=== PATIENT | male | born 1965 | race Caucasian/White ===

== ENCOUNTER 2018-04-21 14:15 | Emergency (ER) | payer OTHER, SELFPAY ==
[2018-04-21 14:17] VITALS: BP 121/78; PULSE 96; RESP 16; TEMP 35.6; BMI 50.5
--- NOTE | 2018-04-21 15:09 | RAD_ITS ---
STUDY: X-RAY - RIGHT SHOULDER REASON FOR EXAM: Male, 53 years old. Pain with limited range of motion after trauma. TECHNIQUE: 2 view(s) of the shoulder. COMPARISON: None. FINDINGS: Grossly normal glenohumeral alignment. There is degenerative arthrosis of the acromioclavicular joint without inferior osseous spur formation. Normal acromion. There is a comminuted fracture of the humeral head, the posterolateral fragments showing slight distraction. The soft tissue structures are grossly unremarkable, although some swelling near the level of the humeral neck could be present.. Normal visualized pulmonary apex. RAD/Shoulder min 2 Views IMPRESSION: Comminuted fracture of the right humeral head. Electronically Signed: Jesse Ordaz MD at 15:39 EDT , Service support ,
[2018-04-21] MEDS: Naproxen 500 MG Tablet PO (15:15)
--- NOTE | 2018-04-21 15:48 | ED.VISSUMM ---
- ER Visit Summary Date of Service: 04/21/18 Chief Complaint: Right shoulder pain History of Present Illness: The patient is a 53 M who presents with right shoulder pain. He states he was at work when he fell and landed on his right shoulder. This pain is worse with movement. He took no medications for it. He denies any previous injuries or surgeries to this arm. Physical Examination: Vital signs reviewed. Right shoulder reveals tenderness along the anterior proximal humeral area. His distal clavicle pain as well. He has painful range of motion. 2+ pulses distally. Test Results: Right shoulder x-ray reveals a proximal humerus fracture Emergency Department Course and Treatment: Patient was initially given naproxen for pain control. He will be placed in a sling. He states he does not want to do Worker's Compensation. I will give him a short course of Percocet for pain. He will be placed in a sling for comfort. He will be given orthopedic follow-up Treatment Plan: [] Disposition: Discharge Impression: Right proximal humerus fracture This note was generated with [employer] dictation software. It may contain incorrect words, spelling, and punctuation that were not noted in review of the chart prior to signing ED Disposition - Plan for ED Patient: Chief Complaint: Upper Extremity Injury Referrals: Esa Montalvo MD [Primary Care Provider] -
--- NOTE | 2018-04-21 15:49 | ED.DEP ---
ED Disposition - Plan for ED Patient: Disposition: Home or Assisted Living Chief Complaint: Upper Extremity Injury Instructions: ED Fx Shoulder Prescriptions: Oxycodone HCl/Acetaminophen [Percocet 5/325] 1 tab PO Q6H PRN PRN 3 Days #12 tab PRN Reason: Pain Referrals: Esa Montalvo MD [Primary Care Provider] - Saulo Steward MD [STAFF PHYSICIAN] -
[2018-04-21 16:20] VITALS: BP 122/74; PULSE 78; RESP 16; O2SAT 98
== END 2018-04-21 16:22 | disposition home or self-care (01) ==
PROVIDERS: Emergency Provider Emergency Medicine; Family Provider Family Medicine; PCP Family Medicine
DX: S42.201A Unspecified fracture of upper end of right humerus, initial encounter for closed fracture (principal); W19.XXXA Unspecified fall, initial encounter; Y93.9 Activity, unspecified; Y92.9 Unspecified place or not applicable; I10 Essential (primary) hypertension; Z79.82 Long term (current) use of aspirin; Z79.899 Other long term (current) drug therapy
CPT/HCPCS: 73030; 99283

== ENCOUNTER 2018-04-25 12:27 | Day surgery (SDC) | payer OTHER, SELFPAY ==
--- NOTE | 2018-04-24 13:21 | EKG12_ITS ---
Test Reason : PRE OP Blood Pressure : / mmHG Vent. Rate : 079 BPM Atrial Rate : 079 BPM P-R Int : 158 ms QRS Dur : 084 ms QT Int : 364 ms P-R-T Axes : 031 -27 -08 degrees QTc Int : 417 ms Normal sinus rhythm Cannot rule out Anterior infarct , age undetermined Abnormal ECG When compared with ECG of 20-MAR-2012 15:55, Minimal criteria for Anterior infarct are now Present Confirmed by LB MUÑOZ ([id number]), scientific publications editor KAIT RODRIGUEZ ([id number]) on 05/08/2018 7:02:32 PM Referred By: Severino Mauro Confirmed By:LB MUÑOZ
[2018-04-24 13:22] LABS: Hematocrit 40.7 % (40-54); Hemoglobin 13.5 g/dl (13.0-16.5); Mean Corp Hgb Conc 33.2 g/gl (32-36); Mean Corpuscular Volume 87.5 fL (80-94); Mean Platelet Vol. 9.6 fl (6.2-12.0); Platelet Count 231 K/mm3 (150-450); RBC Distribution Width CV 14.3 % (11.6-14.6); RBC Distribution Width SD 45.4 fl (35.1-43.9); Red Blood Count 4.65 M/mm3 (4.6-6.2); White Blood Count 8.3 K/mm3 (4.4-11.0)
[2018-04-24 13:24] LABS: Scan Indicated on CBC? Y/N NO
[2018-04-24 13:45] LABS: Anion Gap 7 (5-15); BUN 16 mg/dL (7-18); BUN/Creat Ratio 16.4 RATIO (10-20); Calcium,Total 8.7 mg/dL (8.5-10.1); Chloride 105 mmol/L (98-107); Creatinine, Serum 0.98 mg/dL (0.70-1.30); EST Glomerular Filtration Rate 85 mL/min (>60); Est Glom Filt Rate - Afr Amer 103 mL/min (>60); Glucose 95 mg/dL (74-106); Potassium 4.3 mmol/L (3.5-5.1); Sodium Level 141 mmol/L (136-145)
[2018-04-25] VITALS (11 sets, daily range): BP systolic 99–120; BP diastolic 60–74; PULSE 68–90; RESP 16–20; TEMP 36.1–36.6; O2SAT 92–100; BMI 49.8
--- NOTE | 2018-04-25 14:20 | RAD_ITS ---
STUDY: X-RAY - RIGHT SHOULDER REASON FOR EXAM: Male, 53 years old. ORIF. TECHNIQUE: 2 frontal fluoroscopic spot view(s) of the shoulder. COMPARISON: None. FINDINGS: Limited visualization of the glenohumeral articulation. Normal acromioclavicular alignment. Normal visualized acromion. Post ORIF, fracture of the humeral head and neck is fixed in anatomic alignment by a lateral metal sideplate and numerous screws. The soft tissue structures are unremarkable. Normal visualized pulmonary apex. RAD/Shoulder min 2 Views IMPRESSION: Humeral fracture fragments in anatomic alignment status post ORIF with lateral metal sideplate and screws. Electronically Signed: Jesse Ordaz MD at 17:30 EDT , Service support ,
[2018-04-25] MEDS: Ketorolac 30 MG/ML Syringe IV (16:51)
== END 2018-04-25 18:52 | disposition home or self-care (01) ==
LOC: SDC 12:28 → AC 12:29
PROVIDERS: Family Provider Family Medicine; PCP Family Medicine; Visit Provider Orthopaedic Surgery
PROC: (CPT 23615; principal; 2018-04-25 14:15)
DX: S42.291A Other displaced fracture of upper end of right humerus, initial encounter for closed fracture (principal); I10 Essential (primary) hypertension; E66.01 Morbid (severe) obesity due to excess calories; Z68.42 Body mass index [BMI] 45.0-49.9, adult; Z79.891 Long term (current) use of opiate analgesic; Z79.899 Other long term (current) drug therapy; Z79.82 Long term (current) use of aspirin; W18.39XA Other fall on same level, initial encounter; Y93.89 Activity, other specified; Y92.219 Unspecified school as the place of occurrence of the external cause; Y99.0 Civilian activity done for income or pay
CPT/HCPCS: 23615; 36415; 73030; 76000; 80048; 85027; 93005; C1713; J7120

== ENCOUNTER → 2020-02-04 09:40 | Outpatient (CLI) | payer OTHER, SELFPAY ==
[2019-06-25 11:43] VITALS: BMI 49.8
[2020-02-04 13:19] LABS: Hemoglobin A1c 5.3 % (4.2-6.3)
== END ==
PROVIDERS: PCP Family Medicine; Referring Provider Family Medicine; Visit Provider Family Medicine
DX: R73.9 Hyperglycemia, unspecified (principal)
CPT/HCPCS: 36415; 83036

== ENCOUNTER 2024-01-12 09:20 | Emergency (ER) | payer OTHER, SELFPAY ==
[2024-01-12 09:21] VITALS: BP 140/90; PULSE 73; RESP 18; TEMP 35.8; O2SAT 96; BMI 45.9
[2024-01-12 09:35] LABS: Color, Urine Yellow (Yellow); Glucose, Dipstick Normal (Normal); Ketone-Dipstick Negative (Negative); Leukocyte Esterase-Dipstick 25 /ul (Negative); Nitrite-Dipstick Negative (Negative); Occult Blood-Urine 250 /ul (Negative); Protein-Dipstick 30 mg/dl (Negative); Urine Bilirubin Dipstick Negative (Negative); Urine Clarity Clear (Clear); Urine Urobilinogen Normal (Normal)
[2024-01-12 09:37] LABS: Mucous, Urine 0 SEEN /hpf (<or=2+); Squamous Epithelial Cells - UA 0 SEEN /hpf (0-5)
--- NOTE | 2024-01-12 09:40 | EX.ED.GUMALE ---
HPI History of Present Illness Chief Complaint: Flank Pain Narrative Narrative: 58-year-old male presenting with left flank pain. Onset about 6 AM this morning. He states he has a history of kidney stone on the right about 12 years ago. He states he saw Dr. Diaz and needed lithotripsy. Patient states has not had a kidney stone since then. He denies fevers at home. He denies nausea. Patient denies abdominal pain. States his pain is relatively under control at this point. [facility] Medical History (Updated 01/12/24 @ 11:[address] Polo Cerna DO) Back pain Hx of carpal tunnel syndrome Hx of renal calculi Hypertension Home Medications aspirin 81 mg tablet,delayed release (Adult Low Dose Aspirin) 81 mg PO QDAY 03/18/18 [History Last Taken 04/19/18] lisinopril 2.5 mg tablet 10 mg PO QDAY 03/18/18 [History Last Taken 04/25/18 07:30 10 MG] naproxen 500 mg tablet 500 mg PO PRN PRN Pain 04/24/18 [History Last Taken 04/23/18] vit C,E,zinc,copper-[id number] 250 mg-lutein 5 mg-zeaxanthin 1 mg capsule 1 ea PO DAILY 04/24/18 [History Last Taken Unknown] prednisone 20 mg tablet 20 mg PO DAILY #18 tabs 06/25/19 [Rx Last Taken Unknown] ondansetron 4 mg disintegrating tablet 4 mg PO Q8H PRN PRN Nausea #14 tabs 01/12/24 [Rx Last Taken Unknown] oxycodone 5 mg tablet 5 mg PO Q6H PRN pain 3 days #12 tabs 01/12/24 [Rx Last Taken Unknown] Allergy/AdvReac Type Severity Reaction Status Date / Time hydrocodone [From Vicodin] AdvReac nausea,vomi Verified 01/12/24 09:21 ting Surgical History Hx of colonoscopy Hx of hernia repair Social History Smoking Status: Never smoker ROS ROS ED Constitutional Constitutional ED: Denies chills, fever(s) or sweats Eyes Eyes: Denies change in vision ENT ENT ED: Denies rhinorrhea or sore throat Cardiovascular Cardiovascular: Denies chest pain or palpitations Respiratory/Chest Respiratory/Chest: Denies cough or dyspnea Gastrointestinal Gastrointestinal: Denies abdominal pain, nausea or vomiting Genitourinary Genitourinary ED: Denies dysuria or hematuria Musculoskeletal Musculoskeletal: Reports back pain; Denies arthralgias Integumentary Denies abscess Neurologic Neurologic: Denies headache(s) or paresthesias Psychiatric Psychiatric: Denies anxiety or depression EXAM Physical Exam Const Vital Signs: 01/12/24 09:21 01/12/24 10:12 Temperature 96.5 F L 96.4 F L Temperature Source Temporal Temporal Pulse Rate 73 67 Respiratory Rate 18 18 Blood Pressure 140/90 H 96/64 Blood Pressure Mean 106 74 Pulse Ox 96 97 Oxygen Delivery Method Room Air Room Air Positive well nourished General Appearance ED: NAD; Negative for pallor HEENT Reports moist mucous membranes normocephalic Eyes PERRL and EOMs intact bilaterally Resp normal respiratory effort Cardio regular rate and regular rhythm GI non-tender and non-distended Bladder / Kidney Exam: CVA tenderness left Extremity General Extremety ED: Yes edema General Extremity: edema Neuro oriented x3 and CN's II-XII intact bilaterally Sensorium / Orientation: alert Motor Exam: strength 5/5 throughout Psych mental status grossly normal Skin General Skin Exam: Negative for jaundice or pallor MDM MDM MDM Narrative Medical decision making narrative: 58-year-old male presenting with left flank pain differential includes UTI, pyelonephritis, kidney stone. Low suspicion for diverticulitis as patient not having GI symptoms. Patient has history of kidney stones states feels same. Patient medicated with Toradol as he states his pain is fairly well-controlled. He states he does not need Zofran. CBC was obtained to assess white blood cell count, hemoglobin, platelets. BMP to assess renal function, electrolytes, glucose. CT of the abdomen pelvis without contrast was obtained to rule out kidney stone. Patient will be reevaluated. On reevaluation the patient's pain is well well-controlled with just Toradol. CBC and BMP unremarkable. Urinalysis shows occult blood. CT of the abdomen pelvis without contrast shows 7 mm stone in the left distal ureter. Patient will follow-up with Dr. Diaz outpatient as he is seen him in the past. Return precautions were discussed. Patient given oxycodone and Zofran for home. Impression: 1. 7 mm distal ureteral stone 2. Hematuria Lab Data Labs: Laboratory Results - last 24 hr 01/12/24 01/12/24 09:25 09:35 WBC 7.3 RBC 5.59 Hgb 16.8 H Hct 49.1 MCV 87.8 MCH 30.1 MCHC 34.2 RDW Std Deviation 43.5 RDW Coeff of Gina 13.7 Plt Count 240 MPV 9.6 Immature Gran % (Auto) 0.300 Neut % (Auto) 71.2 H Lymph % (Auto) 20.1 [place] % (Auto) 5.2 Eos % (Auto) 2.1 Baso % (Auto) 1.1 H Absolute Neuts (auto) 5.2 Absolute Lymphs (auto) 1.46 Nucleated RBC % 0 Sodium 141 Potassium 3.8 Chloride 108 H Carbon Dioxide 29.0 Anion Gap 4 L BUN 13 Creatinine 1.12 Estim Creat Clear Calc 100.51 Est GFR (MDRD) Af Amer 86 Est GFR (MDRD) Non-Af 71 BUN/Creatinine Ratio 11.6 Glucose 117 H Calcium 9.4 Urine Color Yellow Urine Clarity Clear Urine pH 6.0 Ur Specific [place] 1.020 Urine Protein 30 H Urine Glucose (UA) Normal Urine Ketones Negative Urine Occult Blood 250 H Urine Nitrite Negative Urine Bilirubin Negative Urine Urobilinogen Normal Ur Leukocyte Esterase 25 H Urine RBC 10-25 SEEN Urine WBC 0-5 SEEN Ur Squamous Epith Cells 0 SEEN Urine Bacteria RARE Urine Mucus 0 SEEN Radiography Diagnostic Testing: Clinical Impression(s) from Imaging Studies Abdomen/Pelvis CT 01/12/24 09:42 IMPRESSION: Left-sided hydronephrosis and hydroureter with perinephric and periureteral inflammatory stranding. Findings due to a 7 mm stone in the distal left ureter on images described above No free intraperitoneal fluid, air, or suspicious adenopathy, normal appendix visualized Degenerative bony changes Scattered diverticula Electronically Signed: Jesse Carranza MD at 10:33 EST , Discharge Plan Triage Chief Complaint: Flank Pain ED Provider: Pool Cerna Dx/Rx/DC Orders Instructions: ED Kidney Stone with Pain Prescriptions: New oxycodone 5 mg tablet 5 mg PO Q6H PRN (Reason: pain) 3 Days Qty: 12 0RF ondansetron 4 mg tablet,disintegrating 4 mg PO Q8H PRN PRN (Reason: Nausea) Qty: 14 0RF No Action lisinopril 2.5 mg tablet 10 mg PO QDAY aspirin [Adult Low Dose Aspirin] 81 mg tablet,delayed release (DR/EC) 81 mg PO QDAY prednisone 20 mg tablet 20 mg PO DAILY Qty: 18 0RF Rx Instructions: 3 tablets daily for 3 days, then 2 tablets daily for 3 days, then 1 tablet daily for 3 days naproxen 500 MG tablet 500 mg PO PRN PRN (Reason: Pain) C,E,zinc,copper [id number] 1 EACH capsule 1 ea PO DAILY Primary Care Provider: Esa Montalvo Referrals: Gurpreet Diaz MD [Med Staff - Active Staff] - 3-5 Days Esa Montalvo MD [Primary Care Provider] - Disposition Disposition: Home, Self Care
--- NOTE | 2024-01-12 09:42 | CT_ITS ---
STUDY: CT ABDOMEN AND PELVIS WITHOUT CONTRAST REASON FOR EXAM: Male, 58 years old. left flank pain RADIATION DOSAGE (If Supplied By Facility): CTDIvol = ( 23.97 ) mGy, DLP = ( 1281.71 ) mGycm TECHNIQUE: Transaxial images were obtained from the dome of the diaphragm to the symphysis pubis without oral contrast, and without intravenous contrast. Sagittal and coronal images were reconstructed. Individualized dose optimization techniques were used for this CT. COMPARISON: None. FINDINGS: The visualized lung bases are unremarkable. The visualized portions of the heart are within normal limits. Normal liver. Normal gallbladder and extrahepatic biliary system. Normal spleen. Normal pancreas. Normal bilateral adrenal glands. There is left-sided hydronephrosis and hydroureter with perinephric and periureteral inflammatory stranding. Findings due to a 7 mm stone in the distal left ureter best seen on coronal recon image 79 and axial image 143. Right kidney is free of obstruction, neither kidney shows evidence of a solid mass lesion. Normal visualized stomach. Normal small intestine. Scattered colonic diverticula without CT evidence of acute diverticulitis. The appendix is visualized and appears normal. The neck seen on coronal reconstructed image 56. There is nonspecific induration of the mesenteric fat. There is diffuse atherosclerotic calcification of the abdominal aorta, without a demonstrated aneurysm. Normal inferior vena cava. Normal retroperitoneum. Normal urinary bladder. Normal abdominal wall. There are diffuse degenerative changes of the visualized lumbar spine, and pelvis. CT/Abdomen/Pelvis without Cont IMPRESSION: Left-sided hydronephrosis and hydroureter with perinephric and periureteral inflammatory stranding. Findings due to a 7 mm stone in the distal left ureter on images described above No free intraperitoneal fluid, air, or suspicious adenopathy, normal appendix visualized Degenerative bony changes Scattered diverticula Electronically Signed: Jesse Carranza MD at 10:33 EST ,
[2024-01-12 09:44] LABS: Absolute Lymphocyte Count 1.46 X10^3/uL (0.83-4.51); Absolute Neutrophil Count 5.2 X10^3/uL (2.0-7.7); Basophil# 0.08 X10^3/uL; Basophil% 1.1 % (0-1); Eosinophil# 0.15 X10^3/uL; Eosinophils% 2.1 % (0-5); Hematocrit 49.1 % (40-54); Hemoglobin 16.8 g/dL (13.0-16.5); Lymphocyte # 1.46 X10^3/ul (0.83-4.51); Lymphocyte % 20.1 % (19-41); Mean Corp Hgb Conc 34.2 g/dL (32-36); Mean Corpuscular Hgb 30.1 pg (27.0-32.0); Mean Corpuscular Volume 87.8 fL (80-94); Mean Platelet Vol. 9.6 fl (6.2-12.0); Monocyte# 0.38 X10^3/uL; Monocyte% 5.2 % (0-10); NRBC Flagged by Analyzer 0 % (0-5); Neutrophil # 5.19 X10^3/uL (2.7-7.7); Neutrophil % 71.2 % (47-70); Platelet Count 240 K/mm3 (150-450); RBC Distribution Width CV 13.7 % (11.6-14.6); RBC Distribution Width SD 43.5 fl (35.1-43.9); Red Blood Count 5.59 M/mm3 (4.6-6.2); White Blood Count 7.3 K/mm3 (4.4-11.0)
[2024-01-12] MEDS: Ketorolac 15 MG/ML Vial IV (09:45)
[2024-01-12 09:51] LABS: Bacteria RARE /hpf (None Seen); Red Blood Cells-Urine 10-25 SEEN /hpf (0-5); White Blood Cells 0-5 SEEN /hpf (0-5)
--- OUTSIDE RECORDS SUMMARY | 2024-01-12 09:53 | XMS RPT_ITS | CCD ---
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 Name Role Phone Unavailable Primary Care Provider Tom Montalvo MD, Esa Loving Primary Care Provider Selvin DUGGAN, Esa Loving Primary Care Provider Antony Olvera Unavailable Esa Montalvo MD Primary Care Provider Antony Olvera Unavailable ESA MONTALVO Attending ESA Grant Primary Care UnavailESA Muro Attending ESA Grant Primary Care ESA Grant Referring ESA Grant Primary Care Esa Grant MD Primary Care Provider Antony Olvera MD Unavailable Allergies Allergy Classification Reported Allergen(s) Allergy Type Date of Onset Reaction(s) Facility (9 sources) Acetaminophen / HYDROcodone; Translations: [HYDROCODONE-ACETA MINOPHEN] Drug Allergy 7 Vomiting [facility] (5 sources) HYDROcodone; Translations: [HYDROCODONE] Drug Allergy 9 Other: See Comments [facility] Medications Completed/Discontinued Medications Medication Drug Class(es) Dates Sig (Normalized) Sig (Original) aspirin 81 mg delayed release oral tablet (8 sources) Platelet Aggregation Inhibitor, Nonsteroidal Anti-inflammatory Drug Start: 06-27-2017 take 1 tablet by mouth once daily aspirin, enteric coated (ASPIRIN, ENTERIC COATED) 81 mg EC tablet Take 81 mg by mouth once daily. 0 06/27/2017 Active Problems Active Problems Problem Classification Problem Date Documented Da te Episodic/Chronic Essential hypertension (10 sources) Essential hypertension; Translations: [Essential (primary) hypertension] Onset: 06-27-2017 Chronic Other nutritional; endocrine; and metabolic disorders (7 sources) Morbid obesity; Translations: [Morbid (severe) obesity due to excess calories] Onset: 08-01-2018 08-07-2022 Chronic Unclassified (1 source) 6 Month Exam Onset: 08-08-2023 Past or Other Problems Problem Classification Problem Date Documented Da te Episodic/Chronic Diabetes mellitus without complication (7 sources) Hyperglycemia; Translations: [Hyperglycemia, unspecified] Onset: 02-02-2020 08-07-2022 Episodic Immunizations and screening for infectious disease (1 source) Encounter for immunization; Translations: [Encounter for immunization] Onset: 02-05-2023 Episodic Other screening for suspected conditions (not mental disorders or infectious disease) (3 sources) Encounter for screening for lipoid disorders; Translations: [Encounter for screening for diseases of the blood and blood-forming organs and certain disorders involving the immune mechanism] Onset: 02-05-2023 Episodic Screening and history of mental health and substance abuse codes (1 source) Encounter for screening for depression; Translations: [Encounter for screening for depression] Onset: 02-05-2023 Episodic Spondylosis; intervertebral disc disorders; other back problems (7 sources) Low back pain; Translations: [Low back pain] Onset: 08-07-2022 08-07-2022 Episodic Results Test Name Value Interpretation Reference Range Facil ity Vital Signs Date Time Vital Sign Value Performing Clinician Faci lity 08-08-2023 10:58-0400 Body height 175.3 cm Esa Montalvo MD Work Phone: [facility] 08-08-2023 10:58-0400 Body temperature 98.1 [degF] Esa Montalvo MD Work Phone: [facility] 08-08-2023 10:58-0400 Body weight 129.73 kg Esa Montalvo MD Work Phone: [facility] 08-08-2023 10:58-0400 Diastolic blood pressure 76 mm[Hg] Esa Montalvo MD Work Phone: [facility] 08-08-2023 10:58-0400 Heart rate 66 /min Esa Montalvo MD Work Phone: [facility] 08-08-2023 10:58-0400 Respiratory rate 15 /min Esa Montalvo MD Work Phone: [facility] 08-08-2023 10:58-0400 SaO2% (BldA) [Mass fraction] 98 % Esa Montalvo MD Work Phone: [facility] 08-08-2023 10:58-0400 Systolic blood pressure 116 mm[Hg] Esa Montalvo MD Work Phone: [facility] 08-07-2022 10:42-0400 Body height 175.3 cm Esa Montalvo MD Work Phone: [facility] 08-07-2022 10:42-0400 Body temperature 96.8 [degF] Esa Montalvo MD Work Phone: [facility] 08-07-2022 10:42-0400 Body weight 122.11 kg Esa Montalvo MD Work Phone: [facility] 08-07-2022 10:42-0400 Diastolic blood pressure 64 mm[Hg] Esa Montalvo MD Work Phone: [facility] 08-07-2022 10:42-0400 Heart rate 63 /min Esa Montalvo MD Work Phone: [facility] 08-07-2022 10:42-0400 Respiratory rate 14 /min Esa Montalvo MD Work Phone: [facility] 08-07-2022 10:42-0400 SaO2% (BldA) [Mass fraction] 99 % Esa Montalvo MD Work Phone: [facility] 08-07-2022 10:42-0400 Systolic blood pressure 100 mm[Hg] Esa Montalvo MD Work Phone: [facility] 02-01-2022 10:26-0500 Body temperature 96.6 [degF] [facility] 02-01-2022 10:26-0500 Body weight 131.09 kg [facility] 02-01-2022 10:26-0500 Diastolic blood pressure 70 mm[Hg] [facility] 02-01-2022 10:26-0500 Heart rate 68 /min [facility] 02-01-2022 10:26-0500 Systolic blood pressure 108 mm[Hg] [facility] Encounters Encounter Date Encounter Type Care Provider Facility Start: 09-22-2023 Patient encounter procedure [facility] Provider [facility] Department Start: 08-08-2023 End: 08-08-2023 ambulatory ESA MONTALVO Facility:[id number] Start: 08-08-2023 End: 08-08-2023 Office outpatient visit 15 minutes Esa Montalvo MD Work Phone: [facility] [place] Procedures Date Procedure Procedure Detail Performing Clinician Start: 02-05-2023 Lipid 1996 panel - S mariel or Plasma Esa Montalvo MD Work Phone: Plan of Treatment Date Care Activity Detail Author Start: 02-05-2033 Urine microalbumin profile [facility] Start: 02-06-2028 Lipid 1996 panel - S mariel or Plasma Lipid Screening [facility] Start: 02-06-2028 LIPID SCREEN LIPID SCREEN [facility] Start: 02-06-2028 PROSTATE CANCER SCRE ENING DISCUSSION PROSTATE CANCER SCREENING DISCUSSION [facility] Start: 02-01-2027 LIPID SCREEN LIPID SCREEN [facility] Start: 02-01-2027 PROSTATE CANCER SCRE ENING DISCUSSION PROSTATE CANCER SCREENING DISCUSSION [facility] Start: 02-05-2026 DIABETES SCREEN DIABETES SCREEN [facility] Start: 02-05-2026 Diabetes Screening Diabetes Screenin g [facility] Start: 02-01-2025 DIABETES SCREEN DIABETES SCREEN [facility] Start: 08-08-2024 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 Visit Annual PCP Team Chronic Disease Visit [facility] Start: 08-08-2024 BP Controlled (<130/80) BP Controlle d (<130/80) [facility] Start: 02-06-2024 ANNUAL PCP TEAM BOOMBOAT OPERATOR ASHLYN DISEASE VISIT ANNUAL PCP TEAM CHRONIC DISEASE VISIT [facility] Start: 02-06-2024 BP CONTROLLED (<130/80) BP CONTROLLE D (<130/80) [facility] Start: 08-07-2023 ANNUAL PCP TEAM BOOMBOAT OPERATOR ASHLYN DISEASE VISIT ANNUAL PCP TEAM CHRONIC DISEASE VISIT [facility] Start: 08-07-2023 BP CONTROLLED (<130/80) BP CONTROLLE D (<130/80) [facility] Start: 07-27-2023 Covid-19 Vaccine ( season) Covid-19 Vaccine ( season) [facility] Start: 07-27-2023 Influenza vaccination Influenza Vacc ine (#1) [facility] Start: 07-27-2022 Influenza vaccination INFLUENZA (#1) [facility] Start: 06-09-2022 COVID-19 VACCINE (5 - Booster for Moderna series) COVID-19 VACCINE (5 - Booster for Moderna series) [facility] Start: 11-26-2021 DEPRESSION ASSESSMENT DEPRESSION ASS ESSMENT [facility] Start: 2015 SHINGRIX VACCINE (1 of 2) SHINGRIX V ACCINE (1 of 2) [facility] Start: 04-06-2012 Urine microalbumin profile DTAP,TDAP ,TD (1 - Tdap) [facility] Start: 2010 COLOGUARD (FIT-DNA) COLOGUARD (FIT-D NA) [facility] Start: 2010 Colonoscopy COLONOSCOPY [facility] Start: 2010 COLORECTAL CANCER SCREENING COLORECTAL CANCER SCREENING [facility] Start: [address] COLONOGRAPHY [facility] Start: 2010 FECAL OCCULT BLOOD FECAL OCCULT BLOO D [facility] Start: 2010 SIGMOIDOSCOPY SIGMOIDOSCOPY [facility] Start: 1983 HEPATITIS C SCREENING HEPATITIS C SC REENING [facility] Start: 1983 HIV SCREENING HIV SCREENING [facility] Start: 1977 Adult depression scr eening assessment DEPRESSION SCREENING [facility] Start: 1965 COVID-19 VACCINE (#1) COVID-19 VACCI NE (#1) [facility] Start: 1965 HEPATITIS B (1 of 3 - 3-dose series) HEPATITIS B (1 of 3 - 3-dose series) [facility] Start: 1965 Hepatitis B Vaccine (1 of 3 - 3-dose series) Hepatitis B Vaccine (1 of 3 - [facility]dose series[facility] Immun[facility] Immunization Date Immunization Notes Care Provider Fa rayne 02-05-2023 tetanus toxoid, redu gigi diphtheria toxoid, and acellular pertussis vaccine, adsorbed Esa Montalvo MD Work Phone: [facility] 09-12-2022 influenza virus vacc ine, unspecified formulation Esa Montalvo MD Work Phone: [facility] 04-14-2022 COVID-19 original vaccine, full dose, monovalent (MODERNA) Esa Montalvo MD Work Phone: [facility] 12-14-2021 zoster vaccine recombinant Esa Montalov MD Work Phone: [facility] 10-21-2021 COVID-19 original vaccine, full dose, monovalent (MODERNA) Esa Montalvo MD Work Phone: [facility] 10-13-2021 zoster vaccine recombinant Esa Montalvo MD Work Phone: [facility] 08-12-2021 influenza, injectabl e, quadrivalent, preservative free Esa Montalvo MD Work Phone: [facility] 03-07-2021 COVID-19 original vaccine, full dose, monovalent (MODERNA) Esa Montalvo MD Work Phone: [facility] 02-07-2021 COVID-19 original vaccine, full dose, monovalent (MODERNA) Esa Montalvo MD Work Phone: [facility] 08-11-2020 influenza, injectabl e, quadrivalent, preservative free [facility] 09-24-2019 influenza, injectabl e, quadrivalent, preservative free [facility] 04-05-2012 TD(adult) unspecifie d formulation [facility] 11-15-2009 novel influenza-H1N1 -09, preservative-free, injectable Esa Montalvo MD Work Phone: [facility] Payers Date Payer Category Payer Unknown [employer] PPO [id number] 2021-[facility] [phone] [address] [place] [address] [facility] [id number] 2021 Unknown [id number] Social History Date Type Detail Facility Start: 08-04-2022 Tobacco smoking stat [facility] Tobacco smoking consumption unknown [facility] Start: 1965 Sex Assigned At Not on file [facility] Start: 08-07-2022 Tobacco smoking stat [facility] Never smoked tobacco [facility] Start: 08-07-2022 Tobacco use and exposure Smoke less tobacco non-user [facility] Start: 08-07-2022 End: 08-08-2023 Alcohol intake Current drinker of alcohol (finding) [facility] Start: 08-07-2022 History SDOH Alcohol Comment rarely [facility] Start: 08-07-2022 Education 13 [facility] Start: 07-28-2022 End: 08-07-2022 Exposure to SARS-CoV-2 (event) Not sure [facility] Start: 02-05-2023 History SDOH Alcohol Frequency 2 [facility] Start: 02-05-2023 History SDOH Alcohol Std Drinks 1 [facility] Start: 02-05-2023 History SDOH Social Connections Phone 5 [facility] Start: 02-05-2023 History SDOH Social Connections Adventism 3 [facility] Start: 02-05-2023 History SDOH Social Connections Living 7 [facility] Start: 02-05-2023 History SDOH Physica l Activity DPW 0 [facility] Start: 02-05-2023 End: 08-08-2023 History of Social function [facility] Start: 02-05-2023 End: 08-08-2023 Social connection and isolation panel [facility] Do you belong to any clubs or organizations such as religion groups, unions, fraternal or athletic groups, or school groups? Yes [facility] Are you now , , , , never or living with a partner? Never [facility] How often to you hav e a drink containing alcohol? Monthly or less [facility] How many standard dr inks containing alcohol do you have on a typical day? 1 or 2 [facility] How often do you hav e 6 or more drinks on 1 occasion? Never [facility] How hard is it for y ou to pay for the very basics like food, housing, medical care, and heating Not hard at all [facility] Do you feel stress - tense, restless, nervous, or anxious, or unable to sleep at night because your mind is troubled all the time - these days [OSQ] Not at all [facility] (I/We) worried wheth er (my/our) food would run out before (I/we) got money to buy more. Never true [facility] In the past 12 month s, was there a time when you were not able to pay the mortgage or rent on time? No [facility] NEGATED: Highlighted rowStart: NINF History of tobacco use Passive smoker [facility] Clinical Notes 08-07-2022 to 08-08-2023 Esa Montalvo MD - 08/08/2023 11:13 AM Malia Monahan LPN - 08/08/2023 10:40 AM EDTTelephone Encounter - Malia Almanza LPN - 02/09/2023 3:19 PM EDT Note Date & Type Note Facility 08-08-2023 Note HNO ID: [id number] Author: Esa Montalvo MD Service: ? Author Type: Physician Type: Progress Notes Filed: 08/08/2023 1:41 PM Note Text: This note was created using Polantisriter. Subjective Gustavo Gentile is a 58 year old male. Gustavo presents today for follow-up for his hypertension. His blood pressure is under excellent control on his current regimen. He is tolerating medication well. Review of Systems Constitutional: Negative. HENT: Negative. Eyes: Negative. Respiratory: Negative. Cardiovascular: Negative. Gastrointestinal: Negative. Endocrine: Negative. Genitourinary: Negative. Musculoskeletal: Negative. Skin: Negative. Allergic/Immunologic: Negative. Neurological: Negative. Hematological: Negative. Psychiatric/Behavioral: Negative. Objective BP 116/76 (BP Site: Left Arm, BP Position: Sitting, BP Cuff Size: Large Adult) Pulse 66 Temp 36.7 ?C (98.1 ?F) (Temporal) Resp 15 Ht 175.3 cm (5' 9 ) Wt 129.7 kg (286 lb) SpO2 98% BMI 42.23 kg/m? Physical Exam Vitals reviewed. Constitutional: Appearance: Normal appearance. HENT: Head: Normocephalic and atraumatic. Nose: Nose normal. Eyes: Extraocular Movements: Extraocular movements intact. Pupils: Pupils are equal, round, and reactive to light. Cardiovascular: Rate and Rhythm: Normal rate and regular rhythm. Pulmonary: Effort: Pulmonary effort is normal. Breath sounds: Normal breath sounds. Abdominal: General: Bowel sounds are normal. Palpations: Abdomen is soft. Musculoskeletal: General: Normal range of motion. Cervical back: Normal range of motion and neck supple. Skin: General: Skin is warm and dry. Capillary Refill: Capillary refill takes less than 2 seconds. Neurological: General: No focal deficit present. Mental Status: He is alert and oriented to person, place, and time. Mental status is at baseline. Psychiatric: Mood and Affect: Mood normal. Behavior: Behavior normal. Assessment and Plan Encounter Diagnosis ICD-10-CM 1. Primary hypertension I10 Continue present medications. Follow-up in 6 months. Reduce salt. Reduce stress. Reduce weight. Increase exercise. Esa Montalvo MD [facility] 08-08-2023 Note HNO ID: [id number] Author: Malia Almanza LPN Service: ? Author Type: LICENSED NURSE Type: Progress Notes Filed: 08/08/2023 1:41 PM Note Text: Patient is in office today for 6 month exam. No refills needed today. TYREE: Wellness Exam Patient denies any concerns at this time. He is still taking Lisinopril 5 mg daily as ordered from last office. Malia Almanza LPN August 08, 2023 11:04 AM [facility] 08-08-2023 History of Presen t illness Narrative This note was created using VIOSO. Subjective Gustavo Gentile is a 58 year old male. Gustavo presents today for follow-up for his hypertension. His blood pressure is under excellent control on his current regimen. He is tolerating medication well. Review of Systems Constitutional: Negative. HENT: Negative. Eyes: Negative. Respiratory: Negative. Cardiovascular: Negative. Gastrointestinal: Negative. Endocrine: Negative. Genitourinary: Negative. Musculoskeletal: Negative. Skin: Negative. Allergic/Immunologic: Negative. Neurological: Negative. Hematological: Negative. Psychiatric/Behavioral: Negative. Objective BP 116/76 (BP Site: Left Arm, BP Position: Sitting, BP Cuff Size: Large Adult) Pulse 66 Temp 36.7 C (98.1 F) (Temporal) Resp 15 Ht 175.3 cm (5' 9 ) Wt 129.7 kg (286 lb) SpO2 98% BMI 42.23 kg/m Physical Exam Vitals reviewed. Constitutional: Appearance: Normal appearance. HENT: Head: Normocephalic and atraumatic. Nose: Nose normal. Eyes: Extraocular Movements: Extraocular movements intact. Pupils: Pupils are equal, round, and reactive to light. Cardiovascular: Rate and Rhythm: Normal rate and regular rhythm. Pulmonary: Effort: Pulmonary effort is normal. Breath sounds: Normal breath sounds. Abdominal: General: Bowel sounds are normal. Palpations: Abdomen is soft. Musculoskeletal: General: Normal range of motion. Cervical back: Normal range of motion and neck supple. Skin: General: Skin is warm and dry. Capillary Refill: Capillary refill takes less than 2 seconds. Neurological: General: No focal deficit present. Mental Status: He is alert and oriented to person, place, and time. Mental status is at baseline. Psychiatric: Mood and Affect: Mood normal. Behavior: Behavior normal. Assessment and Plan Encounter Diagnosis ICD-10-CM 1. Primary hypertension I10 Continue present medications. Follow-up in 6 months. Reduce salt. Reduce stress. Reduce weight. Increase exercise. Esa Montalvo MD Patient is in office today for 6 month exam. No refills needed today. TYREE: Wellness Exam Patient denies any concerns at this time. He is still taking Lisinopril 5 mg daily as ordered from last office. Malia Almanza LPN August 08, 2023 11:04 AM documented in this encounter [facility] 02-09-2023 Miscellaneous Notes Formattin g of this note might be different from the original. Per population health, the following orders need entered. - Need an order for Hep C and HIV screening Malia Almanza LPN February 09, 2023 3:22 PM documented in this encounter [facility] 02-09-2023 Miscellaneous Notes Formattin g of this note might be different from the original. Ruy Canales is faxing the colonoscopy that was done 2015 with a repeat date of 2025 to the pcp Parker Hollins, Can you please call Dr Olvera's office to request last colonoscopy? Thank you Katie Alfaro MA documented in this encounter [facility] 02-05-2023 Note HNO ID: [id number] Author: Esa Montalvo MD Service: ? Author Type: Physician Type: Progress Notes Filed: 02/05/2023 11:15 AM Note Text: This note was created using VIOSO. Subjective Gustavo Gentile is a 57 year old male. Gustavo presents today for his annual wellness exam. Review of Systems Constitutional: Negative. HENT: Negative. Eyes: Negative. Respiratory: Negative. Cardiovascular: Negative. Gastrointestinal: Negative. Endocrine: Negative. Genitourinary: Negative. Musculoskeletal: Negative. Skin: Negative. Allergic/Immunologic: Negative. Neurological: Negative. Hematological: Negative. Psychiatric/Behavioral: Negative. Objective BP 108/72 (BP Site: Left Arm, BP Position: Sitting, BP Cuff Size: Large Adult) Pulse 68 Temp 36.2 ?C (97.1 ?F) (Temporal) Resp 18 Ht 175.3 cm (5' 9 ) Wt 125.6 kg (277 lb) SpO2 95% BMI 40.91 kg/m? Physical Exam Vitals reviewed. Constitutional: Appearance: Normal appearance. HENT: Head: Normocephalic and atraumatic. Nose: Nose normal. Eyes: Extraocular Movements: Extraocular movements intact. Pupils: Pupils are equal, round, and reactive to light. Cardiovascular: Rate and Rhythm: Normal rate and regular rhythm. Pulmonary: Effort: Pulmonary effort is normal. Breath sounds: Normal breath sounds. Abdominal: General: Bowel sounds are normal. Palpations: Abdomen is soft. Musculoskeletal: General: Normal range of motion. Cervical back: Normal range of motion and neck supple. Skin: General: Skin is warm and dry. Capillary Refill: Capillary refill takes less than 2 seconds. Neurological: General: No focal deficit present. Mental Status: He is alert and oriented to person, place, and time. Mental status is at baseline. Psychiatric: Mood and Affect: Mood normal. Behavior: Behavior normal. Assessment and Plan Gustavo was seen today for wellness. Diagnoses and all orders for this visit: Wellness examination - COMP METABOLIC PANEL; Future Encounter for screening for depression - DEPRESSION SCREENING/ASSESSMENT Encounter for immunization - TDAP VACCINE, AGE 7+ YR (ADACEL, BOOSTRIX) Hypertension, essential - COMP METABOLIC PANEL; Future Lipid screening - LIPID PANEL BASIC; Future Screening for deficiency anemia - CBC + DIFF; Future Screening PSA (prostate specific antigen) - PSA/PROSTSPECAG SCRN; Future [facility] 02-05-2023 Note HNO ID: [id number] Author: Clarissa Dias LPN Service: ? Author Type: LICENSED NURSE Type: Progress Notes Filed: 02/05/2023 11:15 AM Note Text: DUE HEALTH MAINTENANCE HEPATITIS B(1 of 3 - 3-dose series) completed at [facility] HEPATITIS C SCREENING HIV SCREENING COLORECTAL CANCER SCREENING patient stated he is due 2023, per Dr. Olvera DTAP,TDAP,TD(1 - Tdap) requesting today, administered in left deltoid no complaints No refills needed at this time. Clarissa Dias LPN February 05, 2023 10:46 AM [facility] 09-04-2022 Miscellaneous Notes Formattin g of this note is different from the original. Requested Prescriptions Pending Prescriptions Disp Refills lisinopril (ZESTRIL, PRINIVIL) 10 mg tablet [Pharmacy Med Name: Lisinopril 10 MG Oral Tablet] 90 tablet 3 Sig: TAKE 1 TABLET BY MOUTH ONCE DAILY DIRECTED Clarissa Dias LPN September 04, 2022 5:17 PM documented in this encounter [facility] 08-07-2022 History of Presen t illness Narrative This note was created using Polantisriter. Subjective Gustavo Gentile is a 57 year old male. Gustavo presents today for follow-up for hypertension. His blood pressure is much improved on his current regimen. He is tolerating medication well. He has no new complaints today. Review of Systems Constitutional: Negative. HENT: Negative. Eyes: Negative. Respiratory: Negative. Cardiovascular: Negative. Gastrointestinal: Negative. Endocrine: Negative. Genitourinary: Negative. Musculoskeletal: Negative. Skin: Negative. Allergic/Immunologic: Negative. Neurological: Negative. Hematological: Negative. Psychiatric/Behavioral: Negative. Objective BP 100/64 (BP Site: Right Arm, BP Cuff Size: Large Adult) Pulse 63 Temp 36 C (96.8 F) (Temporal) Resp 14 Ht 175.3 cm (5' 9 ) Wt 122.1 kg (269 lb 3.2 oz) SpO2 99% BMI 39.75 kg/m Physical Exam Vitals reviewed. Constitutional: Appearance: Normal appearance. HENT: Head: Normocephalic and atraumatic. Nose: Nose normal. Eyes: Extraocular Movements: Extraocular movements intact. Pupils: Pupils are equal, round, and reactive to light. Cardiovascular: Rate and Rhythm: Normal rate and regular rhythm. Pulmonary: Effort: Pulmonary effort is normal. Breath sounds: Normal breath sounds. Abdominal: General: Bowel sounds are normal. Palpations: Abdomen is soft. Musculoskeletal: General: Normal range of motion. Cervical back: Normal range of motion and neck supple. Skin: General: Skin is warm and dry. Capillary Refill: Capillary refill takes less than 2 seconds. Neurological: General: No focal deficit present. Mental Status: He is alert and oriented to person, place, and time. Mental status is at baseline. Psychiatric: Mood and Affect: Mood normal. Behavior: Behavior normal. Assessment and Plan Gustavo was seen today for 6 month exam. Diagnoses and all orders for this visit: Primary hypertension Continue present medications. Follow-up in 6 months for wellness documented in this encounter [facility] Primary hypertension- Primary Unspecified essential hypertension documented in this encounter [facility] Summary Purpose Family History No Family History Records FoundNo Family History Records Found Advance Directives No Advanced Directives Records FoundNo Advanced Directives Records Found Additional Source Comments Source Comments (unrecognize d section and content) In the event this informatio n is protected by the Federal Confidentiality of Alcohol and Drug Abuse Patient Records regulations: The Federal rules restrict any use of the information to criminally investigate or prosecute any alcohol or drug abuse patient.[facility] the event this information is protected by the Federal Confidentiality of Alcohol and Drug Abuse Patient Records regulations: The Federal rules restrict any use of the information to criminally investigate or prosecute any alcohol or drug abuse patient.[facility] the event this information is protected by the Federal Confidentiality of Alcohol and Drug Abuse Patient Records regulations: The Federal rules restrict any use of the information to criminally investigate or prosecute any alcohol or drug abuse patient.[facility] the event this information is protected by the Federal Confidentiality of Alcohol and Drug Abuse Patient Records regulations: The Federal rules restrict any use of the information to criminally investigate or prosecute any alcohol or drug abuse patient.[facility] the event this information is protected by the Federal Confidentiality of Alcohol and Drug Abuse Patient Records regulations: The Federal rules restrict any use of the information to criminally investigate or prosecute any alcohol or drug abuse patient.[facility] the event this information is protected by the Federal Confidentiality of Alcohol and Drug Abuse Patient Records regulations: The Federal rules restrict any use of the information to criminally investigate or prosecute any alcohol or drug abuse patient.[facility] the event this information is protected by the Federal Confidentiality of Alcohol and Drug Abuse Patient Records regulations: The Federal rules restrict any use of the information to criminally investigate or prosecute any alcohol or drug abuse patient.[facility] the event this information is protected by the Federal Confidentiality of Alcohol and Drug Abuse Patient Records regulations: The Federal rules restrict any use of the information to criminally investigate or prosecute any alcohol or drug abuse patient.[facility] the event this information is protected by the Federal Confidentiality of Alcohol and Drug Abuse Patient Records regulations: The Federal rules restrict any use of the information to criminally investigate or prosecute any alcohol or drug abuse patient.[facility] (unrecognized sect ion and content) No Status Records FoundNo Status Records Found INFORMATION SOURCE (unrecogn ized section and content) DATE CREATED AUTHOR AUTHOR'S ORGANIZ ATION 08/09/2023 [facility] Ce nter Reason for Visit (unrecogniz ed section and content) Specialty Diagnoses / Procedures Referred By Contac t Referred To Contact Family Practice / FAMILY MEDICINE Diagnoses Follow-up exam 6 mos fu--[id number] Procedures OFFICE/OUTPATIENT ESTABLISHED MOD MDM 30-39 MIN EST PATIENT Self Esa Montalvo MD [address] [place] [address] Referral ID Status Reason Start Date Expiration Date Visits Re quested Visits Authorized [id number] Closed 08/07/2022 11/25/2022 1 1 Reason Comments Refill Request Reason Comments Results Reason Comments Population Health Navigation Outreach Po pulation Health Reason Comments 6 Month Exam Specialty Diagnoses / Procedures Referred By Contac t Referred To Contact Family Medicine / FAMILY MEDICINE Diagnoses 6 Month Follow Up Procedures OFFICE/OUTPATIENT ESTABLISHED MOD MDM 30-39 MIN EST PATIENT Self Esa Montalvo MD [address] [place] [address] Referral ID Status Reason Start Date Expiration Date Visits Re quested Visits Authorized [id number] Closed 08/08/2023 11/25/2023 1 1 Care Teams (unrecognized sec tion and content) 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 Relationship Specialty Start Date End Date Esa Montalvo MD [address] [place] [address] PCP - General Family Medicine 08/08/22 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 Relationship Specialty Start Date End Date Esa Montalvo MD [address] [place] [address] PCP - General Family Medicine 08/08/22 Antony Olvera [address] [place] [address] Gastroenterology 02/08/23 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 Relationship Specialty Start Date End Date Esa Montalvo MD [address] [place] [address] PCP - General Family Medicine 08/08/22 Antony Olvera [address] [place] [address] Gastroenterology 02/08/23 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 Relationship Specialty Start Date End Date Esa Montalvo MD [address] [place] [address] PCP - General Family Medicine 08/08/22 Antony Olvera [address] [place] [address] Gastroenterology 02/08/23 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 This clinical summary was aggregated from multiple sources. Caution should be exercised in using it in the provision of clinical care. This summary normalizes information from multiple sources, and as a consequence, information in this document may materially change the coding, format and clinical context of patient data. In addition, data may be omitted in some cases. CLINICAL DECISIONS SHOULD BE BASED ON THE PRIMARY CLINICAL RECORDS. [facility] provides no warranty or guarantee of the accuracy or completeness of information in this document.
[2024-01-12 10:03] LABS: Anion Gap 4 (5-15); BUN 13 mg/dL (7-18); BUN/Creat Ratio 11.6 RATIO (10-20); Calcium,Total 9.4 mg/dL (8.5-10.1); Chloride 108 mmol/L (98-107); Creatinine, Serum 1.12 mg/dL (0.70-1.30); EST Glomerular Filtration Rate 71 mL/min (>60); Est Glom Filt Rate - Afr Amer 86 mL/min (>60); Estimated Creatinine Clearance 100.51 ml/min; Glucose 117 mg/dL (74-106); Potassium 3.8 mmol/L (3.5-5.1); Sodium Level 141 mmol/L (136-145)
[2024-01-12 10:12] VITALS: BP 96/64; PULSE 67; RESP 18; TEMP 35.8; O2SAT 97
[2024-01-12 11:39] VITALS: BP 96/64; PULSE 67; RESP 18; TEMP 35.8; O2SAT 97
== END 2024-01-12 11:39 | disposition home or self-care (01) ==
PROVIDERS: Emergency Provider Student in an Organized Health Care Education/Training Program; PCP Family Medicine; Visit Provider Student in an Organized Health Care Education/Training Program
DX: N13.2 Hydronephrosis with renal and ureteral calculous obstruction (principal); R10.9 Unspecified abdominal pain; R31.9 Hematuria, unspecified; Z87.442 Personal history of urinary calculi; I10 Essential (primary) hypertension
CPT/HCPCS: 74176; 80048; 81001; 85025; 96374; 99283; A4216